=== PATIENT | female | born 1985 | race African-American/Black ===

== ENCOUNTER 2024-01-31 13:59 | Emergency (ER) | payer OTHER, SELFPAY ==
[2024-01-31 14:26] VITALS: BP 118/72; PULSE 93; RESP 16; TEMP 36.6; O2SAT 100
--- NOTE | 2024-01-31 14:58 | ED_ITS ---
HPI - URI/Sore Throat General Chief Complaint: Upper Respiratory Infection Stated Complaint: Sore Throat Time Seen by Provider: 01/31/24 14:48 Source: patient, RN notes reviewed and old records reviewed Mode of arrival: ambulatory Limitations: no limitations History of Present Illness HPI Narrative: 38 year old female who presents to [facility] care with complaints of sore throat which started this morning. Patient reports that she woke up feeling like her throat was half closed and swollen reports that it hurts to swallow. Patient reports no difficulty with her breathing denies any cough or any wheezing, respirations even and nonlabored with no tachypnea noted SAO2 100% on room air. Patient reports no fevers,states no chills or sweats, denies any body aches.Patient has not taken any OTC medications for her discomfort. MD elicited complaint: sore throat Pertinent past history: asthma Onset (ago): day(s) (this morning) Pain scale (0-10): 6 Able to tolerate fluids by mouth: Yes Treatments prior to arrival: none Related Data Home Medications ?Medication ?Instructions ?Recorded ?Confirmed ?Last Taken ?Type atorvastatin 40 mg tablet mg 01/31/24 Unknown History cariprazine 1.5 mg capsule mg 01/31/24 Unknown History (Vraylar) cariprazine 4.5 mg capsule mg 01/31/24 Unknown History (Vraylar) escitalopram oxalate 20 mg tablet mg 01/31/24 Unknown History Allergies Allergy/AdvReac Type Severity Reaction Status Date / Time peach Allergy Mild Unknown Verified 01/31/24 14:25 lactose AdvReac Unknown GI upset Verified 01/31/24 14:25 Review of Systems Review of Systems: CONSTITUTIONAL: Denies malaise, chills, sweats, or fever. EYES: Denies visual changes, redness, or discharge. ENT: Reports no rhinorrhea, congestion, sinus pain, no otalgia and positive for sore throat. CARDIOVASCULAR: Denies chest pain, palpitations, or edema. RESPIRATORY: Reports no cough.? Denies dyspnea. GASTROINTESTINAL: Denies abdominal pain, nausea, vomiting, diarrhea SKIN: Denies rash or itching. MUSCULOSKELETAL: Denies myalgia. NEUROLOGIC: Denies headache. All systems reviewed & are unremarkable except as noted in HPI and below PMFSH Past Medical History Medical History (Updated 02/02/24 @ 21:00 by Colette Pappas NP) Asthma Lumbago Elevated cholesterol Anxiety and depression Bipolar disorder Surgical History Surgical History (Updated 02/02/24 @ 20:53 by Colette Pappas NP) History of cholecystectomy Social History Social History (Updated 02/02/24 @ 20:53 by Colette Pappas NP) Smoking status: Never smoker Alcohol intake: current Alcohol use details: rare Substance use: current Substance use type: marijuana Living arrangements: with family Gender identity (if verbalized by the patient): Female Comments At time of signature, agree with nursing past medical, surgical, social and family history. There is no relevant family history pertinent to the presenting complaint Exam Narrative: GENERAL: Well-appearing, well-nourished,obesity and in no acute distress. HEAD: Normocephalic EYES: PERRLA, conjunctivae clear ENT: Nares clear, turbinates edematous and erythematous, clear discharge. Mucous membranes moist. TM pearly mitchell with dull light reflex bilaterally; no tragal tenderness. Oropharynx erythematous without lesions, mild swelling noted. no Moi angina or any dental problems. Tonsils not enlarged and without exudate, no drooling, no hoarseness, no trismus, uvula midline, able to control own secretions without difficulty. NECK: Supple. No lymphadenopathy CHEST: Clear to auscultation, breath sounds equal. No wheezing, rhonchi, rales, or stridor. No respiratory distress, speaks in full sentences.no cough noted,SAO2 100% on room air HEART: Regular rate and rhythm. No murmur heard. SKIN: Warm, dry, no rash. NEURO: Alert and oriented x3. PSYCH: Normal mood and affect Course Course Emergency Course: Patient is aware of diagnosis, understands and agrees to treatment plan.? Anticipatory guidance given.? Patient agrees to follow-up as directed and is aware of reasons to seek care at the emergency department. Portions of this record may have been created with voice recognition software Level of Care: Express Care Visit Vital Signs Vital signs: Vital Signs Temperature 36.6 C 01/31/24 14:26 Pulse Rate 93 01/31/24 14:26 Respiratory Rate 16 01/31/24 14:26 Blood Pressure 118/72 01/31/24 14:26 Pulse Oximetry 100 01/31/24 14:26 Oxygen Delivery Room Air 01/31/24 14:26 Temperature 36.6 C 01/31/24 14:26 Pulse Rate 93 01/31/24 14:26 Respiratory Rate 16 01/31/24 14:26 Blood Pressure 118/72 01/31/24 14:26 Pulse Oximetry 100 01/31/24 14:26 Oxygen Delivery Room Air 01/31/24 14:26 Reviewed MDM - URI/Sore Throat MDM Narrative Medical decision making narrative: Differential diagnosis considered: Flores virus, strep pharyngitis, allergic rhinitis, upper respiratory tract infection, sinusitis, rhinosinusitis, nasopharyngitis. viral pharyngitis, otitis media, otitis externa, pneumonia, bronchitis, viral cough syndrome, viral syndrome, and influenza.? Exam findings show no acute concerns or changes; patient is non-toxic appearing and is in no distress.? Patient is appropriate for outpatient treatment and follow-up. Differential Diagnosis Differential diagnosis: Likely upper respiratory infection, influenza, pharyngitis and other (strep pharyngitis, COVID) Medical Records Attestation: I reviewed the patient's medical records. Lab Data Attestation: I reviewed the patient's lab results. Lab results narrative: strep screen negative culture sent, Influenza A negative, Influenza B negative, Covid antigen negative Labs: Lab Results 01/31/24 01/31/24 Range/Units 15:23 15:28 POC Influenza A Ag Negative (Negative) POC Influenza B Ag Negative (Negative) POC SARS CoV-2 Ag Negative (Negative) POC Grp A Strep Screen Negative (Negative) Critical Care Time Critical Care Time Critical Care Time: No Discharge Plan Discharge Clinical Impression: Upper respiratory infection Qualifiers: URI type: unspecified URI Qualified Code(s): J06.9 - Acute upper respiratory infection, unspecified Pharyngitis Qualifiers: Pharyngitis/tonsillitis etiology: unspecified etiology Qualified Code(s): J02.9 - Acute pharyngitis, unspecified Patient Disposition: Home, Self-Care Condition: Stable Instructions: Antibiotic Form, Pharyngitis (ED) Additional Instructions: Increase fluids especially juices and water [id number] cough and cold medicine of your choice for your symptoms Tylenol or ibuprofen for any fever pain Steroids as directed--take with food heat to the face 20-30 minutes 4-6 times a day for pain Salt water gargles, throat lozenges or throat sprays as desired Your strep test today was negative. A throat culture will be sent to the laboratory for further testing. IF the test is positive, you will receive a phone call within 48 hours and an appropriate antibiotic will be initiated at that time. Patient Language: Maltese Prescriptions: New methylprednisolone [Medrol (Elijah)] 4 mg tablets,dose pack See Rx Instructions .ROUTE .COMPLEX Qty: 21 0RF Rx Instructions: orally per package directions, take with food No Action atorvastatin 40 mg tablet escitalopram oxalate 20 mg tablet Vraylar 1.5 mg capsule Vraylar 4.5 mg capsule Follow-up/Referrals: Harms,Vinnie Marmolejo M.D. [Primary Care Provider] - Time of Disposition: 15:40 Quality Jeff Coma Scale Eyes: Open Verbal: Oriented and Alert Motor: Follows Commands Jeff Coma Total Score: 15
[2024-01-31 15:26] LABS: EDSTREPNEGPOS1 Negative (Negative)
[2024-01-31 15:30] LABS: EDCOVIDSCREEN Negative (Negative); EDINFLUASCREEN Negative (Negative); EDINFLUBSCREEN Negative (Negative)
== END 2024-01-31 15:47 | disposition home or self-care (01) ==
PROVIDERS: Emergency Provider Registered Nurse; PCP Family Medicine
DX: J06.9 Acute upper respiratory infection, unspecified (principal); J02.9 Acute pharyngitis, unspecified; Z20.822 Contact with and (suspected) exposure to COVID-19; F12.90 Cannabis use, unspecified, uncomplicated; J45.909 Unspecified asthma, uncomplicated; E78.00 Pure hypercholesterolemia, unspecified
CPT/HCPCS: 87081; 87426; 87804; 87880; 99203; G0463